=== PATIENT | male | born 1955 | race Caucasian/White ===

== ENCOUNTER 2022-04-23 07:51 | Inpatient (IN) ==
[2022-04-23] MEDS ORDERED: NITROGLYCERIN SL 0.4 MG/TAB TAB SL STA (08:12)
[2022-04-23] MEDS ORDERED: ASPIRIN CHEW 324 MG PO STA (08:12)
[2022-04-23] MEDS ORDERED: METOPROLOL TARTRATE 1 MG/ML VIAL IV STA (08:13)
[2022-04-23] MEDS ORDERED: SODIUM CHLORIDE 0.9% 1000ML 1,000 ML IV ONE (08:16)
--- NOTE | 2022-04-23 08:16 | Emergency Department Note ---
Impression & Plan Non-ST elevation CA (NSTEMI), Chest pain ED Provider Note NAME: RUBENS OCAMPO AGE: 66 SEX: M : 1955 ARRIVES VIA: Walk-In INFORMANT: Patient ED PROVIDER(S): Joaquin Valdez DO CHIEF COMPLAINT: chest pain HPI: Patient is a 66-year-old male with a past medical history of hyperlipidemia, hypertension, carotid sclerosis, CAD who presents to the ER for chest pain which she describes as a tightness in the middle of his chest off and on for the past week. Over the past 3 days it has been constant and it worsens with exertion. It improves with rest. He does have some arm pain. Associated shortness of breath. No belly pain, nausea, vomiting, or diarrhea. No dysuria, urgency, or frequency. No other exacerbating or remitting factors. ROS: See above HPI for pertinent positives & negatives. A total of 10 systems reviewed and were otherwise negative. PAST MEDICAL HISTORY:See Below PAST SURGICAL HISTORY:See Below FAMILY HISTORY:See Below SOCIAL HISTORY:See Below HOME MEDICATIONS:See Below ALLERGIES:See Below VITALS:See Below PHYSICAL EXAMINATION: GENERAL: Sitting up in bed, alert, ill-appearing, moderate distress EYE EXAM: normal conjunctiva. OROPHARYNX: Dry mucous membranes NECK: supple, no nuchal rigidity, no adenopathy, non-tender LUNGS: Clear to auscultation. Normal chest wall mechanics HEART: S1 normal and S2 normal ABDOMEN: abdomen soft, non-tender, normo-active bowel sounds, no masses, no rebound or guarding. UPPER EXTREMITIES: upper extremities are grossly normal. LOWER EXTREMITIES: No pitting edema. NEURO EXAM: Normal sensorium, cranial nerves II-XII grossly intact, normal speech, no gross weakness of arms, no gross weakness of legs. MEDICAL DECISION MAKING: Patient is a 66-year-old male who presents the ER for chest pain which has been present off and on for the past week with exertion and now constant for the past 48 hours. IV was established blood work was obtained. EKG showed ischemic changes and consequently patient was given aspirin nitro and Lopressor with a heart rate in the low 100s. Heart rate trended down and his chest pain was relieved. Labs show no significant leukocytosis or anemia. Following the EKG did consult Dr. Davila but did not hear back as he was cathing someone and I was able to discussed with Dr. Sandoval who was gracious enough to send down a bi technical lead and evaluate the Pt at bedside. Did discuss with Dr. Calvin Tracey for admission. Troponin then resulted and was elevated at 515. Did start heparin as I do feel this most consistent with an NSTEMI. 930 patient was seen and evaluated by Dr. Sandoval and echo was reviewed and will go to Chief Clinical Officer. Following this he became very dyspneic and repeat chest x-ray shows extensive pulmonary edema. Placed on BiPAP. He was given Lasix. Rae was placed. He was given multiple dose of Ativan to help him calm down. He became more tired noted that he was struggling to breathe as he was exhausted. At this point I had a conversation with him and we decided to intubate him. He was taken to be 1 intubated with a 7 and half ET tube. Following chest x-ray was advanced 1 cm. Patient was placed on propofol drip. He was initially intubated using socks and etomidate. Propofol drip was titrated up and he dropped his pressures after bolus of propofol. This was titrated back down. He was then given a small bolus of Versed once the pressures rebounded and he started waking up. He was placed on fentanyl drip. He again dropped his pressures and once again these were titrated back down. Patient was admitted to the ICU and he was taken emergently to Chief Clinical Officer. Triage Nursing notes reviewed. Limited review of prior medical records performed Vital Signs: reviewed and remarkable for HTN and tachy Differential diagnosis: Cardiac ischemia, aortic dissection, pulmonary embolism, pneumothorax, pneumonia, pericarditis, myocarditis, esophageal rupture, GERD, cholecystitis, pancreatitis, musculoskeletal, as well as other pathologies. ER treatment provided: See below Diagnostics interpreted by me: ECG: Sinus tachycardia rate of 105 Normal axis Right bundle branch block T wave inversions in the septal leads as well as ST depressions and T wave inversions in V4 through V6 QTC 539 Cardiac Monitoring: An order was placed for continuous cardiac monitoring. The monitor shows a rate of 101 with sinus rhythm. Laboratory studies: As stated above and show below. Imaging studies: Chest x-ray with a normal mediastinum no infiltrates Repeat chest x-ray shows diffuse pulmonary edema Repeat chest x-ray shows diffuse pulmonary edema with placement of the ET tube Consultation(s): Discussed with Dr. Stefan Sandoval who ordered the echo and evaluate the patient at bedside. Discussed with Dr. Calvin Man for admission Jr Uribe was present evaluate the patient and did admission. He also discussed with the ICU/pilot plant technician Did discuss with Tayla Delgado who eventually took over from the hospital standpoint as she updated the Procedures: EM PROCEDURE NOTE - Endotracheal Intubation PROCEDURE NOTE: Informed consent was obtained by the patient. Verify Correct Patient: yes Procedure: Endotracheal intubation Indication: Respiratory failure pulmonary edema The procedure was done emergently. Description of the Procedure: The patient was seen and properly identified. The patient was pre-oxygenated and intubated after rapid sequence induction with meds: Succinylcholine and etomidate. Intubation was performed using a 3 glide scope and a 7.5 cuffed endotracheal tube. The tube was visualized going through the cords and secured at the lips. The patient had good bilateral breath sounds in the axillae with good chest rise. Proper ET tube placement was confirmed by end tidal CO2 detector. The patient tolerated the procedure well. Critical Care: I have personally spent 125 minutes of critical care time in the direct management of this patient. This includes bedside care, interpretation of diagnostic studies, and testing, discussion with consultants, patient, and family members, and other required patient management activities. This 125 minutes is in excess of all separately billable procedures. Past Med/Surg History Surgical History History of appendectomy [place] teeth extracted Family History Mother Breast cancer Grandmother (Maternal) Breast cancer Denies family history of Ovarian cancer Prostate cancer Diabetes Heart disease Myocardial infarction Lung cancer Colorectal cancer Hypertension Stroke Social History Smoking Status: Current every day smoker Tobacco Type: Cigarettes Hx Alcohol Use: Yes Alcohol type: beer Hx Substance Use: Yes marital status: Single Current Living Situation: Significant Other current occupational status: employed current occupation: Electrical sales Feels Safe at Home: Yes caffeine: Yes (coffee) Dental Care, Regularly: Yes Physical Activity Frequency: Does not Exercise Seatbelt Use: always Sunscreen Use: No Allergies Allergies Allergy/AdvReac Type Severity Reaction Status Date / Time No Known Allergies Allergy Verified 04/23/22 11:09 Home Meds Home Medications Medication Instructions Recorded Confirmed aspirin 81 mg tablet,delayed 81 mg PO DAILY 01/06/19 04/23/22 release (Adult Low Dose Aspirin) apple cider vinegar 500 mg tablet 0 mg PO DAILY 04/23/22 04/23/22 omega-3 fatty acids 1,000 mg 1,000 mg PO DAILY 04/23/22 04/23/22 capsule Results & Data (ED) Vital Signs Vital Signs - 24 hr 04/23/22 08:00 04/23/22 08:20 04/23/22 08:05 Temperature 36.1 C L Temperature Source Skin Pulse Rate 105 H 112 H Pulse Rate [Right Finger] Respiratory Rate 20 Respiratory Effort / Characteristics Non-Labored Spontaneous Non-Labored Spontaneous Respiratory Depth Normal Normal Respiratory Pattern Regular Regular Blood Pressure 159/108 H 137/99 Blood Pressure [Right Arm] Blood Pressure Mean 125 Blood Pressure Mean [Right Arm] Pulse Oximetry 96 Oxygen Delivery Method Room Air Fraction of Inspired Oxygen Sepsis Recent Fever Within 48 Hours No Sepsis New/Unexplained Change in Mental Status N/A Sepsis Action Taken by Nursing No Action Required End-Tidal CO2 04/23/22 08:05 04/23/22 08:05 04/23/22 08:35 Temperature Temperature Source Pulse Rate 112 H Pulse Rate [Right Finger] 91 H Respiratory Rate 20 20 Respiratory Effort / Characteristics Non-Labored Respiratory Depth Normal Respiratory Pattern Blood Pressure Blood Pressure [Right Arm] 116/78 Blood Pressure Mean Blood Pressure Mean [Right Arm] 90 Pulse Oximetry 94 93 Oxygen Delivery Method Room Air Room Air Room Air Fraction of Inspired Oxygen Sepsis Recent Fever Within 48 Hours Sepsis New/Unexplained Change in Mental Status Sepsis Action Taken by Nursing End-Tidal CO2 04/23/22 08:40 04/23/22 08:45 04/23/22 08:50 Temperature Temperature Source Pulse Rate Pulse Rate [Right Finger] 90 89 93 H Respiratory Rate 16 16 16 Respiratory Effort / Characteristics Non-Labored Non-Labored Non-Labored Respiratory Depth Normal Normal Normal Respiratory Pattern Blood Pressure Blood Pressure [Right Arm] 115/83 117/83 110/75 Blood Pressure Mean Blood Pressure Mean [Right Arm] 93 94 86 Pulse Oximetry 94 94 93 Oxygen Delivery Method Room Air Room Air Room Air Fraction of Inspired Oxygen Sepsis Recent Fever Within 48 Hours Sepsis New/Unexplained Change in Mental Status Sepsis Action Taken by Nursing End-Tidal CO2 04/23/22 10:20 04/23/22 10:32 04/23/22 10:35 Temperature Temperature Source Pulse Rate 133 H Pulse Rate [Right Finger] 132 H 132 H Respiratory Rate 36 H 36 H 36 H Respiratory Effort / Characteristics Spontaneous Labored Respiratory Depth Respiratory Pattern Tachypnea Blood Pressure Blood Pressure [Right Arm] 179/116 H 168/112 H Blood Pressure Mean Blood Pressure Mean [Right Arm] 137 130 Pulse Oximetry 93 92 Oxygen Delivery Method BiPAP BiPAP Fraction of Inspired Oxygen 60 60 Sepsis Recent Fever Within 48 Hours Sepsis New/Unexplained Change in Mental Status Sepsis Action Taken by Nursing End-Tidal CO2 04/23/22 10:46 04/23/22 11:16 04/23/22 11:25 Temperature Temperature Source Pulse Rate 123 H Pulse Rate [Right Finger] 136 H Respiratory Rate 36 H 18 22 Respiratory Effort / Characteristics Respiratory Depth Respiratory Pattern Blood Pressure Blood Pressure [Right Arm] 187/111 H Blood Pressure Mean Blood Pressure Mean [Right Arm] 136 Pulse Oximetry 90 Oxygen Delivery Method BiPAP Fraction of Inspired Oxygen 100 Sepsis Recent Fever Within 48 Hours Sepsis New/Unexplained Change in Mental Status Sepsis Action Taken by Nursing End-Tidal CO2 34 Laboratory Data Result diagrams: 04/23/22 08:15 04/23/22 08:15 Lab Results 04/23/22 04/23/22 04/23/22 Range/Units 08:15 08:15 08:15 WBC 9.83 (4.8-10.8) K/ul RBC 4.41 L (4.63-6.08) M/uL Hgb 14.8 (14.0-18.0) g/dl Hct 41.6 (40.1-51.0) % MCV 94.3 (80.0-100.0) fL MCH 33.6 (25.0-34.0) pg MCHC 35.6 (32.0-36.0) g/dL RDW Std Deviation 44.6 (36.4-46.3) fL RDW Coeff of Yenni 12.9 (11.5-14.5) % Plt Count 220 (130-400) K/uL MPV 10.6 (9.4-12.4) fL Immature Gran % (Auto) 0.4 % Neut % (Auto) 64.2 % Lymph % (Auto) 26.3 % Nolan % (Auto) 7.0 % Eos % (Auto) 1.4 % Baso % (Auto) 0.7 % Neut # (Auto) 6.30 (1.4-6.5) K/uL Lymph # (Auto) 2.59 (1.2-3.4) K/uL Nolan # (Auto) 0.69 (0.24-0.82) K/uL Eos # (Auto) 0.14 (0-0.50) K/uL Baso # (Auto) 0.07 (0-0.2) K/uL Immature Gran # (Auto) 0.04 H (0.00-0.02) K/uL PT (9.0-12.0) Seconds INR (0.9-1.1) APTT (21.0-31.0) Seconds PTT Ratio POC pH (7.35-7.45) POC pCO2 (35-46) mmHg POC pO2 (80-95) mmHg POC HCO3 (19-24) addy/L POC Total CO2 (24-31) mmol/L POC Base Excess (-9-1.8) addy/L POC ABG O2 Sat (90-95) % Sodium 138 (136-145) mmol/L Potassium 3.8 (3.5-5.1) mmol/L Chloride 106 (98-107) mmol/L Carbon Dioxide 24 (21-32) mmol/L Anion Gap 8 (3-11) BUN 27 H (6-23) mg/dl Creatinine 1.15 (0.6-1.4) mg/dl Est Cr Clr Drug Dosing 72.3 ml/min Est GFR ( Amer) 75.4 ml/min Est GFR (Non-Af Amer) 65.0 ml/min BUN/Creatinine Ratio 23.5 H (10-20) Glucose 127 H (70-99(Fasting)) mg/dl Calcium 9.2 (8.5-10.1) mg/dl Total Bilirubin 0.8 (0.2-1.0) mg/dl AST 19 (13-39) U/L ALT 28 (7-52) U/L Alkaline Phosphatase 58 (34-104) U/L Troponin I High Sens 515.9 H* (0-20) pg/ml Total Protein 7.6 (6.0-8.3) gm/dl Albumin 4.7 (3.4-5.0) gm/dl Globulin 2.9 (2.5-4.0) gm/dl Albumin/Globulin Ratio 1.6 (0.9-2) Lipase 32 (11-82) U/L SARS-CoV-2, RNA, NAAT NEGATIVE (NEGATIVE) 04/23/22 04/23/22 Range/Units 08:15 11:23 WBC (4.8-10.8) K/ul RBC (4.63-6.08) M/uL Hgb (14.0-18.0) g/dl Hct (40.1-51.0) % MCV (80.0-100.0) fL MCH (25.0-34.0) pg MCHC (32.0-36.0) g/dL RDW Std Deviation (36.4-46.3) fL RDW Coeff of Yenni (11.5-14.5) % Plt Count (130-400) K/uL MPV (9.4-12.4) fL Immature Gran % (Auto) % Neut % (Auto) % Lymph % (Auto) % Nolan % (Auto) % Eos % (Auto) % Baso % (Auto) % Neut # (Auto) (1.4-6.5) K/uL Lymph # (Auto) (1.2-3.4) K/uL Nolan # (Auto) (0.24-0.82) K/uL Eos # (Auto) (0-0.50) K/uL Baso # (Auto) (0-0.2) K/uL Immature Gran # (Auto) (0.00-0.02) K/uL PT 10.9 (9.0-12.0) Seconds INR 1.0 (0.9-1.1) APTT 26.9 (21.0-31.0) Seconds PTT Ratio 1.0 POC pH 7.22 L (7.35-7.45) POC pCO2 63 H (35-46) mmHg POC pO2 71 L (80-95) mmHg POC HCO3 26 H (19-24) addy/L POC Total CO2 28 (24-31) mmol/L POC Base Excess -2.0 (-9-1.8) addy/L POC ABG O2 Sat 90.0 (90-95) % Sodium (136-145) mmol/L Potassium (3.5-5.1) mmol/L Chloride (98-107) mmol/L Carbon Dioxide (21-32) mmol/L Anion Gap (3-11) BUN (6-23) mg/dl Creatinine (0.6-1.4) mg/dl Est Cr Clr Drug Dosing ml/min Est GFR ( Amer) ml/min Est GFR (Non-Af Amer) ml/min BUN/Creatinine Ratio (10-20) Glucose (70-99(Fasting)) mg/dl Calcium (8.5-10.1) mg/dl Total Bilirubin (0.2-1.0) mg/dl AST (13-39) U/L ALT (7-52) U/L Alkaline Phosphatase (34-104) U/L Troponin I High Sens (0-20) pg/ml Total Protein (6.0-8.3) gm/dl Albumin (3.4-5.0) gm/dl Globulin (2.5-4.0) gm/dl Albumin/Globulin Ratio (0.9-2) Lipase (11-82) U/L SARS-CoV-2, RNA, NAAT (NEGATIVE) Administered Medications Heparin Sodium/Dextrose (Heparin Sodium/Dextrose) 25,000 units in 500 mls @ 0.02 mls/hr IV .Q24H MARCELINA; Protocol Stop: 05/23/22 09:44 Last Admin: 04/23/22 09:44 Dose: 1,000 units/hr, 20 mls/hr Documented By: NRB Co-signed By: DENIZ Propofol (Diprivan) 1,000 mg in 100 mls @ 12.204 mls/hr IV .Q8H12M [facility]; Protocol Stop: 04/26/22 11:14 Last Admin: 04/23/22 11:14 Dose: 25 mcg/kg/min, 15.3 mls/hr Documented By: NDW Co-signed By: DM Fentanyl Citrate (Fentanyl Citrate) 2,500 mcg in 250 mls @ 2.5 mls/hr IV .Q96H [facility]; Protocol Stop: 05/07/22 11:29 Last Admin: 04/23/22 11:37 Dose: 25 mcg/hr, 2.5 mls/hr Documented By: HEATH Co-signed By: MARIA ANTONIA Propofol (Propofol Bolus From Bag) 20 mg IV Q5M PRN PRN Reason: Sedation Stop: 04/26/22 11:02 Last Admin: 04/23/22 11:14 Dose: 20 mg Documented By: FELIBERTOW Co-signed By: DM Discontinued Medications Aspirin (Aspirin Chew 324 Mg) 324 mg PO NOW STA Stop: 04/23/22 08:13 Last Admin: 04/23/22 08:23 Dose: 324 mg Documented By: MICHAEL Fentanyl Citrate (Fentanyl Citrate 100 Mcg/2 Ml Vial) 50 mcg IV NOW ONE Stop: 04/23/22 11:46 Last Admin: 04/23/22 11:25 Dose: 50 mcg Documented By: HEATH Furosemide (Furosemide 40 Mg/4 Ml Vial) 40 mg IV ONE ONE Stop: 04/23/22 09:36 Last Admin: 04/23/22 10:05 Dose: 40 mg Documented By: MICHAEL Heparin Sodium (Porcine) (Heparin Sod (Porcine) 1000 Unit/Ml) 1 units IV NOW ONE Stop: 04/23/22 09:34 Last Admin: 04/23/22 09:41 Dose: 4,000 units Documented By: MICHAEL Co-signed By: DENIZ Heparin Sodium/Dextrose (Heparin Iv Adult Wt-Based Low-Dose With Bolus Protocol) 1 each IV NOW STA; Protocol Stop: 04/23/22 11:22 Last Admin: 04/23/22 11:26 Dose: Not Given Documented By: HEATH Sodium Chloride (Nss 1000ml) 1,000 mls @ 999 mls/hr IV .Q1H1M ONE Stop: 04/23/22 09:16 Last Infusion: 04/23/22 09:32 Dose: 0 mls/hr Documented By: Admin: 04/23/22 08:23 Dose: 999 mls/hr Documented By: MICHAEL Lorazepam (Lorazepam 2 Mg/1 Ml Vial) Confirm Administered Dose 2 mg .ROUTE .STK- MED ONE Stop: 04/23/22 10:09 Last Admin: 04/23/22 10:10 Dose: 2 mg Documented By: MICHAEL Lorazepam (Lorazepam 2 Mg/1 Ml Vial) Confirm Administered Dose 2 mg .ROUTE .STK- MED ONE Stop: 04/23/22 10:13 Last Admin: 04/23/22 10:17 Dose: 2 mg Documented By: MICHAEL Metoprolol Tartrate (Metoprolol Tartrate 1 Mg/Ml Vial) 5 mg IV NOW STA Stop: 04/23/22 08:14 Last Admin: 04/23/22 08:20 Dose: 5 mg Documented By: MICHAEL Midazolam HCl (Midazolam Hcl 1 Mg/Ml 2ml Vial) 2 mg IV NOW ONE Stop: 04/23/22 11:46 Last Admin: 04/23/22 11:24 Dose: 2 mg Documented By: HEATH Miscellaneous (Rapid Sequence Induction Bag) Confirm Administered Dose 1 each .ROUTE .STK-MED ONE Stop: 04/23/22 10:49 Last Admin: 04/23/22 11:07 Dose: 1 each Documented By: HEATH Nitroglycerin (Nitroglycerin Sl 0.4 Mg/Tab Tab) 0.4 mg SL NOW STA Stop: 04/23/22 08:13 Last Admin: 04/23/22 08:23 Dose: 0.4 mg Documented By: MICHAEL Nitroglycerin (Nitroglycerin 2% Ointment 30gm Tube) Confirm Administered Dose 18 inch EXT .STK-MED ONE Stop: 04/23/22 10:12 Last Admin: 04/23/22 10:13 Dose: 2 inch Documented By: MICHAEL Nitroglycerin/Dextrose (Nitroglycerin/D5w 100 Mcg/Ml Btl) Confirm Administered Dose 25 mg .ROUTE .STK-MED ONE Stop: 04/23/22 10:17 Last Admin: 04/23/22 10:26 Dose: 10 mcg Documented By: MICHAEL Co-signed By: DM Propofol (Propofol Iv Emulsion 10 Mg/Ml 100 Ml Vial) Confirm Administered Dose 1,000 mg IV .STK-MED ONE Stop: 04/23/22 11:01 Last Admin: 04/23/22 11:08 Dose: 1,000 mg Documented By: HEATH Co-signed By: DM Imaging Data Radiologist's Impression: Chest X-Ray 04/23/22 08:05 XR chest 1V portable CLINICAL HISTORY: Chest pain, nonspecific COMPARISON STUDY: Chest CT August 08, 2010. Chest radiograph July 04, 2009. FINDINGS: Lung volumes are normal. No pneumothorax or pleural effusion is present. Mild left lower lung airspace opacity is present. There is subtle lower lung interstitial thickening. This is probably within normal limits. Mild cardiomegaly is noted. There is no evidence for pulmonary edema. IMPRESSION: Mild left lower lung airspace opacity. This favors an infectious process. Radiographic follow-up to ensure resolution is recommended. ACT 112: Negative or not required by law. Electronically signed by: Rudi Bustos M.D. 04/23/2022 8:44 AM Chest X-Ray 04/23/22 10:05 XR chest 1V portable CLINICAL HISTORY: Shortness of breath. COMPARISON STUDY: Chest radiograph performed earlier today. FINDINGS: Moderate interstitial pulmonary edema has developed. Mild cardiomegaly is noted. There is no pneumothorax. No definite pleural effusion is identified. There may be mild left basilar opacity. IMPRESSION: Interval development of moderate interstitial pulmonary edema. ACT 112: Negative or not required by law. Electronically signed by: Rudi Bustos M.D. 04/23/2022 10:49 AM Chest X-Ray 04/23/22 11:04 XR chest 1V portable HISTORY: 66 years-old Male ett acute respiratory failure COMPARISON: 04/23/2022 at 10:16 AM TECHNIQUE: AP view of the chest FINDINGS: Endotracheal tube overlies the midline, 5.2 cm superior to the quyen. Cardiomegaly with pulmonary vascular congestion and progressively worsened interstitial coarsening. Questions trace pleural effusions. No pneumothorax. The lateral left lung base is excluded from the [id number]. Degenerative changes of the shoulders and spine. IMPRESSION: 1. Status post placement of an endotracheal tube, distal tip terminating 5.2 cm superior to the quyen. 2. Cardiomegaly with pulmonary edema. ACT 112: Negative or not required by law. The above report was generated using voice recognition software. It may contain grammatical, syntax or spelling errors. Electronically signed by: Neymar Hansen M.D. 04/23/2022 11:25 AM Discharge Plan Visit Data Chief Complaint: Shortness of Breath/Dyspnea Stated Complaint: TIGHTNESS IN CHEST, SOB ED Provider: Joaquin Valdez Discharge Problem: Non-ST elevation CA (NSTEMI), Chest pain Forms Stand Alone Forms: Smarp Oy Prescriptions Prescriptions: No Action aspirin [Adult Low Dose Aspirin] 81 mg tablet,delayed release (DR/EC) 81 mg PO DAILY omega-3 fatty acids [Fish Oil Concentrate] 1,000 mg Capsule 1,000 mg PO DAILY apple cider vinegar 500 mg Tablet 0 mg PO DAILY Referrals Referrals: Kika Rubalcava MD [Physician] -
--- NOTE | 2022-04-23 08:45 | XRay Report ---
XR chest 1V portable CLINICAL HISTORY: Chest pain, nonspecific COMPARISON STUDY: Chest CT August 08, 2010. Chest radiograph July 04, 2009. FINDINGS: Lung volumes are normal. No pneumothorax or pleural effusion is present. Mild left lower edelmira ng airspace opacity is present. There is subtle lower lung interstitial thickening. This is probably within normal limits. Mild cardiomegaly is noted. There is no evidence for pulmonary edema. IMPRESSION: Mild left lower lung airspace opacity. This favors an infectious process. Radiographic f ollow-up to ensure resolution is recommended. ACT 112: Negative or not required by law. Electronically signed by: Rudi Bustos M.D. 04/23/2022 8:44 AM
[2022-04-23 08:47] LABS: Basophils # (auto) 0.07 K/uL (0-0.2); Basophils % (auto) 0.7 %; Eosinophils # (auto) 0.14 K/uL (0-0.50); Eosinophils % (auto) 1.4 %; Hematocrit (blood only) 41.6 % (40.1-51.0); Hemoglobin 14.8 g/dl (14.0-18.0); Immature Granulocytes # (auto) 0.04 K/uL (0.00-0.02); Immature Granulocytes % (auto) 0.4 %; Lymphocytes # (auto) 2.59 K/uL (1.2-3.4); Lymphocytes % (auto) 26.3 %; Mean Corpuscular Hemoglobin 33.6 pg (25.0-34.0); Mean Corpuscular Hgb Conc 35.6 g/dL (32.0-36.0); Mean Corpuscular Volume 94.3 fL (80.0-100.0); Mean Platelet Volume 10.6 fL (9.4-12.4); Monocytes # (auto) 0.69 K/uL (0.24-0.82); Neutrophils % (auto) 64.2 %; Platelet Count 220 K/uL (130-400); RDW Coefficient of Variation 12.9 % (11.5-14.5); RDW Standard Deviation 44.6 fL (36.4-46.3); Red Blood Count 4.41 M/uL (4.63-6.08); White Blood Count 9.83 K/ul (4.8-10.8)
[2022-04-23 09:17] LABS: Albumin Globulin Ratio 1.6 (0.9-2); Albumin Level 4.7 gm/dl (3.4-5.0); BUN Creatinine Ratio 23.5 (10-20); Bilirubin,Total 0.8 mg/dl (0.2-1.0); Calcium 9.2 mg/dl (8.5-10.1); Creatinine Clr Calc Pharmacy 72.3 ml/min; Est GFR (African American) 75.4 ml/min; Globulin 2.9 gm/dl (2.5-4.0); Potassium 3.8 mmol/L (3.5-5.1); Total Protein 7.6 gm/dl (6.0-8.3)
[2022-04-23] MEDS ORDERED: Heparin IV Adult Wt-Based Low-Dose WITH Bolus Protocol STA (09:18)
[2022-04-23 09:22] LABS: Troponin I High Sensitivity 515.9 pg/ml (0-20)
[2022-04-23] MEDS ORDERED: HEPARIN SOD (PORCINE) 1000 UNIT/ML IV ONE (09:33)
[2022-04-23] MEDS ORDERED: FUROSEMIDE 40 MG/4 ML VIAL IV ONE (09:35)
--- NOTE | 2022-04-23 09:36 | History & Physical Report ---
Date of Service April 23, 2022 Assessment & Plan (1) ACS (acute coronary syndrome): Plan: 66-year-old male presenting with stuttering symptoms of shortness of breath and chest pain for the past 10 to 14 days presenting with consistent chest discomfort resolved with nitroglycerin in the setting of EKG changes and elevated troponin. With NSTEMI * Presenting with EKG changes in the setting of chest pain/HANSON relieved with nitro. * Concerning for ACS picture. * Echo ordered in ED. * Interventionalist at bedside --> Plan for cath today. * Heparin gtt started in the ED. Received Aspirin dose. * AM Lipid panel ordered. * Will add A1c to AM labs. * Will defer to cardiology for ASCVD Rx recommendations. (2) Respiratory failure with hypoxia: Plan: * 2/2 to flash pulmonary edema. * Patient with acute change in the ED requiring initiation of NIPPV and Lasix dosing. * Patient failed BiPAP despite multiple rounds of Ativan. * Patient intubated in the ED 2/2 respiratory failure with hypoxia. * Spoke with [employer] Recruiter who will manage vent. (3) Flash pulmonary edema: Plan: * 2/2 ACS w/ failure. * Will evaluate Echo results. * Initially treated with NIPPV --> intubation. * Continue Lasix dosing per cardiology after cath evaluation. (4) Elevated troponin: Plan: * See above (5) Chest pain: Plan: * See above History of Present Illness Chief Complaint: Chest Pain, SOB Primary Care Provider: NO PCP Patient is a 66-year-old male with a significant past medical history of tobacco dependence with a 09-hase-oaep smoking history, carotid artery disease, hypertension, hyperlipidemia, and prior history of Hodgkin's who presented to the Emergency Department with a 10-14 day history of stuttering chest pain and shortness of breath. He reports that his main symptoms have been shortness of breath on exertion. He does report that he has had paroxysmal nocturnal dyspnea and is woken up short of breath multiple times over the last few nights. While taking out the trash today, he noticed intense shortness of breath and increasing heaviness across the anterior surface of his chest. This prompted visit to the emergency department. The patient reports no recent cough. No recent upper respiratory infections or sequela of symptoms appreciated. Patient reports complete relief of symptoms after nitroglycerin he received in the emergency department. He reports no prior history of coronary artery disease or similar symptoms of chest pain in the past. Patient reports feeling much better at this time. He currently denies complaints of headaches, dizziness, lightheadedness, chest pain, palpitations, pleuritic pain, hemoptysis, recent long distance travel, history of blood clots, nausea, vomiting, abdominal discomfort, or numbness/weakness to the extremities. Patient reports smoking a pack a day for the last 45 years. He drinks socially on a regular basis. Allergies Allergy/AdvReac Type Severity Reaction Status Date / Time No Known Allergies Allergy Verified 04/23/22 11:09 Home Medications Medication Instructions Recorded Confirmed Type aspirin 81 mg tablet,delayed 81 mg PO DAILY 01/06/19 04/23/22 History release (Adult Low Dose Aspirin) apple cider vinegar 500 mg tablet 0 mg PO DAILY 04/23/22 04/23/22 History omega-3 fatty acids 1,000 mg 1,000 mg PO DAILY 04/23/22 04/23/22 History capsule Past Med/Surg History Medical History Benign essential hypertension Carotid atherosclerosis History of smoking Hodgkins disease Mixed hyperlipidemia Surgical History History of appendectomy [place] teeth extracted Family History Mother Breast cancer Grandmother (Maternal) Breast cancer Denies family history of Ovarian cancer Prostate cancer Diabetes Heart disease Myocardial infarction Lung cancer Colorectal cancer Hypertension Stroke Social History Smoking Status: Current every day smoker Tobacco Type: Cigarettes Hx Alcohol Use: Yes Alcohol type: beer Hx Substance Use: Yes marital status: Single Current Living Situation: Significant Other current occupational status: employed current occupation: Electrical sales Feels Safe at Home: Yes caffeine: Yes (coffee) Dental Care, Regularly: Yes Physical Activity Frequency: Does not Exercise Seatbelt Use: always Sunscreen Use: No Review of Systems Review of Systems: A complete 10 point review of systems was reviewed with the patient with pertinent positives and negatives as per history of present illness. All else were negative. Physical Exam Physical Exam: VITAL SIGNS - Vital signs and nursing notes were reviewed. GENERAL - 66-year-old male appearing his stated age who is in no acute distress. Communicates well with provider and answers questions appropriately. HEAD - NC/AT. EYES - PERRL with EOMI bilaterally. Sclera anicteric. Palpebral conjunctiva pink and moist with no injection noted. EARS - No deformities of external structures noted on gross examination bilaterally. NOSE - Midline and without cyanosis. No epistaxis or purulent drainage noted. MOUTH/OROPHARYNX - Without perioral cyanosis. Buccal mucosa pink and moist. NECK - Neck with FROM. LUNGS - Chest wall symmetric without accessory muscle use, intercostals retractions, or central cyanosis. Normal vesicular breath sounds CTA B/L. No wheezes, rales, or rhonchi appreciated. CARDIAC - RRR with S1/S2. No murmur, rubs, or gallops appreciated. No reproducible tenderness to palpation appreciated over the anterior chest wall. ABDOMEN - Abdominal contour protuberant without pulsations or visible masses. BS normoactive all four quadrants. No tenderness, palpable masses, hepatosplenomegaly, or ascites noted. EXTREMITIES - No clubbing or peripheral cyanosis. No pretibial edema present. +3/5 radial and dorsalis pedis pulses palpated throughout. +5/5 strength noted in UE/LE bilaterally. NEUROLOGIC - Cranial nerves II through XII grossly intact. Sensory intact to light touch throughout. PSYCH - A&Ox3 and cooperates fully with examiner. Pt is very pleasant and interacts well with examiner. Results & Data Results & Data ([facility]) Vital Signs (Past 12 Hours) Vital Signs Temp Pulse Pulse Resp BP BP Pulse Ox 04/23/22 08:50 93 H 16 110/75 93 04/23/22 08:45 89 16 117/83 94 04/23/22 08:40 90 16 115/83 94 04/23/22 08:35 91 H 20 116/78 93 04/23/22 08:05 112 H 20 94 04/23/22 08:05 04/23/22 08:20 112 H 137/99 04/23/22 08:00 36.1 C L 105 H 20 159/108 H 96 O2 Del Method 04/23/22 08:50 Room Air 04/23/22 08:45 Room Air 04/23/22 08:40 Room Air 04/23/22 08:35 Room Air 04/23/22 08:05 Room Air 04/23/22 08:05 Room Air 04/23/22 08:20 04/23/22 08:00 Room Air Laboratory Results 04/23/22 04/23/22 04/23/22 Range/Units 11:23 08:15 08:15 WBC (4.8-10.8) K/ul RBC (4.63-6.08) M/uL Hgb (14.0-18.0) g/dl Hct (40.1-51.0) % MCV (80.0-100.0) fL MCH (25.0-34.0) pg MCHC (32.0-36.0) g/dL RDW Std Deviation (36.4-46.3) fL RDW Coeff of Yenni (11.5-14.5) % Plt Count (130-400) K/uL MPV (9.4-12.4) fL Immature Gran % (Auto) % Neut % (Auto) % Lymph % (Auto) % [place] % (Auto) % Eos % (Auto) % Baso % (Auto) % Neut # (Auto) (1.4-6.5) K/uL Lymph # (Auto) (1.2-3.4) K/uL [place] # (Auto) (0.24-0.82) K/uL Eos # (Auto) (0-0.50) K/uL Baso # (Auto) (0-0.2) K/uL Immature Gran # (Auto) (0.00-0.02) K/uL PT 10.9 (9.0-12.0) Seconds INR 1.0 (0.9-1.1) APTT 26.9 (21.0-31.0) Seconds PTT Ratio 1.0 POC pH 7.22 L (7.35-7.45) POC pCO2 63 H (35-46) mmHg POC pO2 71 L (80-95) mmHg POC HCO3 26 H (19-24) addy/L POC Total CO2 28 (24-31) mmol/L POC Base Excess -2.0 (-9-1.8) addy/L POC ABG O2 Sat 90.0 (90-95) % Sodium (136-145) mmol/L Potassium (3.5-5.1) mmol/L Chloride (98-107) mmol/L Carbon Dioxide (21-32) mmol/L Anion Gap (3-11) BUN (6-23) mg/dl Creatinine (0.6-1.4) mg/dl Est Cr Clr Drug Dosing ml/min Est GFR ( Amer) ml/min Est GFR (Non-Af Amer) ml/min BUN/Creatinine Ratio (10-20) Glucose (70-99(Fasting)) mg/dl Calcium (8.5-10.1) mg/dl Total Bilirubin (0.2-1.0) mg/dl AST (13-39) U/L ALT (7-52) U/L Alkaline Phosphatase (34-104) U/L Troponin I High Sens (0-20) pg/ml Total Protein (6.0-8.3) gm/dl Albumin (3.4-5.0) gm/dl Globulin (2.5-4.0) gm/dl Albumin/Globulin Ratio (0.9-2) Lipase (11-82) U/L SARS-CoV-2, RNA, NAAT NEGATIVE (NEGATIVE) 04/23/22 04/23/22 Range/Units 08:15 08:15 WBC 9.83 (4.8-10.8) K/ul RBC 4.41 L (4.63-6.08) M/uL Hgb 14.8 (14.0-18.0) g/dl Hct 41.6 (40.1-51.0) % MCV 94.3 (80.0-100.0) fL MCH 33.6 (25.0-34.0) pg MCHC 35.6 (32.0-36.0) g/dL RDW Std Deviation 44.6 (36.4-46.3) fL RDW Coeff of Yenni 12.9 (11.5-14.5) % Plt Count 220 (130-400) K/uL MPV 10.6 (9.4-12.4) fL Immature Gran % (Auto) 0.4 % Neut % (Auto) 64.2 % Lymph % (Auto) 26.3 % [place] % (Auto) 7.0 % Eos % (Auto) 1.4 % Baso % (Auto) 0.7 % Neut # (Auto) 6.30 (1.4-6.5) K/uL Lymph # (Auto) 2.59 (1.2-3.4) K/uL [place] # (Auto) 0.69 (0.24-0.82) K/uL Eos # (Auto) 0.14 (0-0.50) K/uL Baso # (Auto) 0.07 (0-0.2) K/uL Immature Gran # (Auto) 0.04 H (0.00-0.02) K/uL PT (9.0-12.0) Seconds INR (0.9-1.1) APTT (21.0-31.0) Seconds PTT Ratio POC pH (7.35-7.45) POC pCO2 (35-46) mmHg POC pO2 (80-95) mmHg POC HCO3 (19-24) addy/L POC Total CO2 (24-31) mmol/L POC Base Excess (-9-1.8) addy/L POC ABG O2 Sat (90-95) % Sodium 138 (136-145) mmol/L Potassium 3.8 (3.5-5.1) mmol/L Chloride 106 (98-107) mmol/L Carbon Dioxide 24 (21-32) mmol/L Anion Gap 8 (3-11) BUN 27 H (6-23) mg/dl Creatinine 1.15 (0.6-1.4) mg/dl Est Cr Clr Drug Dosing 72.3 ml/min Est GFR ( Amer) 75.4 ml/min Est GFR (Non-Af Amer) 65.0 ml/min BUN/Creatinine Ratio 23.5 H (10-20) Glucose 127 H (70-99(Fasting)) mg/dl Calcium 9.2 (8.5-10.1) mg/dl Total Bilirubin 0.8 (0.2-1.0) mg/dl AST 19 (13-39) U/L ALT 28 (7-52) U/L Alkaline Phosphatase 58 (34-104) U/L Troponin I High Sens 515.9 H* (0-20) pg/ml Total Protein 7.6 (6.0-8.3) gm/dl Albumin 4.7 (3.4-5.0) gm/dl Globulin 2.9 (2.5-4.0) gm/dl Albumin/Globulin Ratio 1.6 (0.9-2) Lipase 32 (11-82) U/L SARS-CoV-2, RNA, NAAT (NEGATIVE) ECG Indication: chest pain and SOB/dyspnea Rate (beats per minute): 105 Rhythm: sinus tachycardia Findings: + RBBB and + ST depression (Lateral) Comparison ECG Date: no prior available Code Status & VTE Plan VTE Prophylaxis Plan VTE Prophylaxis will be ordered: Yes Supervising Physician Co-Signing Physician Notes PA Supervision Note: I personally saw and examined the patient. I verified all arriaga points and agree with LFORIDALMA Uribe with the following exceptions and/or additions: S-this patient is a 66-year-old male with a history of HTN, hyperlipidemia not currently on treatment, Hodgkin's lymphoma stage Ia status post radiation and chemotherapy in 2013, and cigarette smoker who has not seen a doctor in almost 10 years, who presents to the ER with stuttering chest pain over the last 10 days or so that worsened with increased activity outside this morning. The chest pain was central. He came to the ER and was found to have an abnormal ECG, elevated troponin at 500, and was given aspirin, nitroglycerin sublingual and then later on a nitroglycerin drip, IV metoprolol, and a 1 L bolus of normal saline. He was then noted to develop significant respiratory distress and was given IV Lasix, started on BiPAP and was given Ativan to help with anxiety of being on BiPAP and with respiratory distress. An echocardiogram did show numerous wall motion abnormalities in LAD distribution on initial look with an EF of approximately 30-35%. By the time I saw him, he was on BiPAP, drowsy but remained restless. He sat himself up into a tripod position while on BiPAP and his pulse ox was 90% on 60% FiO2. He told me that he was still having some central chest pain and obviously was short of breath. He denied abdominal pains or nausea. He had been placed on a heparin drip at this point. He was afebrile, with sinus tachycardia in the 1 teens, and blood pressures were quite elevated up to 196/130. I discussed his care with the ER physician as well as the room service bellhop. Plans are to intubate him for respiratory failure and taken emergently to the cardiac laborer car barn. I discussed his care with his fiance at the bedside. History and ROS reviewed otherwise as above O- Vitals reviewed Gen: In respiratory distress, obese, alert but a bit drowsy status post Ativan, answers questions with short answers, with BiPAP mask in place HEENT: Anicteric sclerae, EOMI CV: Regular rhythm, tachycardic, no mgr nl S1S2 Pulm: Positive bibasilar crackles, tachypnea, no wheezes or rhonchi, breath sounds heard throughout all lung rojas Abd: +BS soft NT ND no masses or hernias Ext: No edema Skin: No rashes, warm/dry Neuro: Full strength throughout : Rae catheter in place with approximately 50 mL of clear yellow urine Labs, Rads, and ECG reviewed A/A-77-ibxd-old male here with NSTEMI and acute systolic CHF with acute respiratory failure with hypoxia requiring intubation and mechanical ventilation. -Admit to ICU-vent management as per ICU -Sedation as per social welfare clerk after intubation -Urgent cardiac catheterization to be performed-Will await results and determination of next steps -Continue heparin drip, nitroglycerin drip, received aspirin 324 Mg p.o. x1. Will likely need high intensity statin but will defer until after cardiac catheterization. -Trend serial troponin until peaks -Eventually after stabilization, will need guideline directed medical therapy for heart failure. IV Lasix given x1 and will reassess after Carpet Yarn Winder Operator evaluation for left-sided filling pressures -Rae catheter in place, monitor I's/O's, daily weights -Checking hemoglobin A1c, lipid panel in the morning -Follow CBC, CMP, magnesium, phosphorus and replace electrolytes as needed in the ICU -Keep n.p.o. for now Discussed his care with his fiance at the bedside. She reports that his daughter would be his next of kin/POA. PG Care Time/CCT Total # of Minutes Spent Total Time Spent with Patient: Total time spent is greater than 50% in coordination of care (as documented) at patient's floor/unit and/or counseling patient: Coding Level of Care Code 00416 Initial Inpt Care Lvl 3 Diagnoses ACS (acute coronary syndrome) I24.9 Respiratory failure with hypoxia J96.91 Flash pulmonary edema J81.0 Elevated troponin R77.8 Chest pain R07.9 Time Spent (min) 65
[2022-04-23] MEDS ORDERED: HEPARIN SODIUM/DEXTROSE 25,000 UNITS/500 ML BAG IV SCH ×2 (09:45→16:00)
[2022-04-23 09:53] LABS: Partial Thromboplastin Time 26.9 Seconds (21.0-31.0); Prothrombin Time 10.9 Seconds (9.0-12.0)
[2022-04-23] MEDS ORDERED: LORazepam 2 MG/1 ML VIAL ONE ×2 (10:08→10:12)
[2022-04-23] MEDS ORDERED: NITROGLYCERIN 2% OINTMENT 30GM TUBE EXT ONE (10:11)
[2022-04-23] MEDS ORDERED: NITROGLYCERIN/D5W 100 MCG/ML BTL ONE (10:16)
[2022-04-23] MEDS ORDERED: [UNRECOGNIZED DRUG - REMARK] IV (10:20)
--- NOTE | 2022-04-23 10:36 | Procedure Note ---
Procedure Note Date of Service April 23, 2022 Note Procedure: Solar Installation Helper Indwelling Peripherally Inserted IV Catheter Placement Attending: Dr. Delgado APC: Jr Uribe PA-C Indication: Need for IV Access, Poor Vascular Access Anesthesia: None Verbal consent was obtained from patient prior to performing the procedure. A time-out was completed verifying correct patient, procedure, site, positioning, and implant(s) or special equipment if applicable. Utilizing bedside ultrasound, vascularity of the LEFT upper extremity was assessed. Vessel size was noted for appropriate catheter selection and skin was marked with gentle pressure. Patients LEFT upper extremity was prepped and draped in the usual sterile fashion utilizing chlorhexidine. Ultrasound guidance was used to aid needle placement. A 22 g Endurance Catheter was introduced into the LEFT Forearm vein under direct ultrasound guidance. Guide wire was easily deployed without resistance. Catheter was threaded over the guide wire without resistance and the entire apparatus was removed intact. Good venous blood return was noted in the catheter. The IV catheter was easily flushed with sterile saline flush. Sterile clave was attached to the end of the catheter and good blood return was again noted. Tourniquet was released. StatLock device and sterile dressing were applied. The patient tolerated the procedure well. Blood Loss: Minimal Complications: None Procedural Ultrasound Guidance: Procedure Date: 04/23/2022 Indication: Poor Vascular Access Attending: Dr. Delgado APC: Jr Uribe PA-C Artery/Veins Identified: YES Access confirmed in Vein with ultrasound: YES Complications: NONE Patient tolerated procedure: WELL Coding CPT Codes Tubes, Drains, and Vasc Access - Tubes, Drains, and Vasc Access: [id number] Venipuncture, Age 1/>Req phys skill, (sep proc), Dx/Tx (not rtn) ([id number]) [facility] [place] Procedure Codes (Charges) Tubes, Drains, and Vasc Access Procedure 1: Tubes, Drains, and Vasc Access: [id number] Venipuncture, Age 1/>Req phys skill, (sep proc), Dx/Tx (not rtn)
--- NOTE | 2022-04-23 10:46 | XCELERA ---
[id number]
[2022-04-23] MEDS ORDERED: RAPID SEQUENCE INDUCTION BAG ONE (10:48)
--- NOTE | 2022-04-23 10:49 | Cardiology Consultation ---
Date of Consultation April 23, 2022 Assessment & Plan (1) Non-ST elevation AK (NSTEMI): 2. Acute systolic heart failure with flash pulmonary edema 3. Cardiomyopathy with regional wall motion abnormalitiesEF 30 to 35% 4. Moderate mitral regurgitation 5. Right bundle branch block High risk ACS presentation with echo suggestive of potential multivessel disease. Recommend urgent cardiac catheterization with possible PCI. At present patient with acute respiratory distress in the setting of acute heart failure. Agree with diuresis, nitrates, BiPAP. Continue heparin infusion. We will plan on cardiac catheterization when respiratory status stable. Further recommendations pending coronary angiography. History of Present Illness History of Present Illness Mr. Briceno is a very pleasant 66-year-old man seen urgently in the ED today due to concern for ACS. No prior cardiac history. ASCVD risk factors include ongoing tobacco use, hypertension not currently on meds. Does have reported carotid atherosclerosis. Has a history of Hodgkin's lymphoma involving his neck in remission. Patient has been having new exertional dyspnea, chest tightness for the last 10 days or so. Symptoms gradually progressive and present with minimal exertion, intermittently with rest over the last few days. Also reports orthopnea. No new lower extreme edema. Denies any real chest pain. On arrival mildly dyspneic, tachycardic to 110s. ECG showed sinus rhythm with right bundle branch block and borderline ST depressions laterally. Initial HS TropI 500. Echocardiogram showed EF 30 to 35% with anterior/anterolateral/infer olateral and apical hypokinesis to akinesis. Also with moderate MR. In the ED after initial IV fluid bolus developed respiratory distress consistent with flash pulmonary edema. Placed on BiPAP, nitroglycerin infusion, Ativan. Social history: Lives in [facility]. Significant other Di. 1 grown daughter. Works in electrical sales. Daily smoker, occasional alcohol. Allergies Allergy/AdvReac Type Severity Reaction Status Date / Time No Known Allergies Allergy Verified 04/23/22 11:09 Home Medications Medication Instructions Recorded Confirmed Type aspirin 81 mg tablet,delayed 81 mg PO DAILY 01/06/19 04/23/22 History release (Adult Low Dose Aspirin) apple cider vinegar 500 mg tablet 0 mg PO DAILY 04/23/22 04/23/22 History omega-3 fatty acids 1,000 mg 1,000 mg PO DAILY 04/23/22 04/23/22 History capsule Patient History Medical History (Updated 04/23/22 @ 15:22 by Luigi Mathew MD, [facility]) Benign essential hypertension CAD (coronary artery disease), [place] coronary artery Carotid atherosclerosis History of smoking Hodgkins disease Mixed hyperlipidemia Surgical History History of appendectomy [place] teeth extracted Family History Mother Breast cancer Grandmother (Maternal) Breast cancer Denies family history of Ovarian cancer Prostate cancer Diabetes Heart disease Myocardial infarction Lung cancer Colorectal cancer Hypertension Stroke Social History Smoking Status: Current every day smoker Tobacco Type: Cigarettes Hx Alcohol Use: Yes Alcohol type: beer Hx Substance Use: Yes marital status: Single Current Living Situation: Significant Other current occupational status: employed current occupation: Electrical sales Feels Safe at Home: Yes caffeine: Yes (coffee) Dental Care, Regularly: Yes Physical Activity Frequency: Does not Exercise Seatbelt Use: always Sunscreen Use: No Review of Systems Review of Systems: All systems reviewed & are unremarkable except as noted in HPI & below Physical Exam Physical Exam: General: Initially comfortable prior to flash pulmonary edema HEENT: Sclerae anicteric Lungs: Decreased breath sounds at bases bilaterally Cardiac: Tachycardic, regular, 2/6 holosystolic at apex. JVP approximately 8 Vascular: 2+ radial bilaterally. Abdomen: Soft, nontender Extremities: Well perfused, no peripheral edema Neuro: Nonfocal Psych: Alert orient x3, normal affect and mood Results & Data ([facility]) Vital Signs (Past 12 Hours) Vital Signs Temp Pulse Pulse Resp BP BP Pulse Ox 04/23/22 10:35 132 H 36 H 168/112 H 92 04/23/22 10:32 132 H 36 H 179/116 H 04/23/22 10:20 133 H 36 H 93 04/23/22 08:50 93 H 16 110/75 93 04/23/22 08:45 89 16 117/83 94 04/23/22 08:40 90 16 115/83 94 04/23/22 08:35 91 H 20 116/78 93 04/23/22 08:05 112 H 20 94 04/23/22 08:05 04/23/22 08:20 112 H 137/99 04/23/22 08:00 97.0 F L 105 H 20 159/108 H 96 O2 Del Method FiO2 04/23/22 10:35 BiPAP 04/23/22 10:32 BiPAP 60 04/23/22 10:20 60 04/23/22 08:50 Room Air 04/23/22 08:45 Room Air 04/23/22 08:40 Room Air 04/23/22 08:35 Room Air 04/23/22 08:05 Room Air 04/23/22 08:05 Room Air 04/23/22 08:20 04/23/22 08:00 Room Air PG Care Time/CCT Total # of Minutes Spent Total Time Spent with Patient: Total time spent is greater than 50% in coordination of care (as documented) at patient's floor/unit and/or counseling patient: Coding Level of Care Code 55279 Initial Inpt Care Lvl 3 Diagnoses Non-ST elevation AK (NSTEMI) I21.4
--- NOTE | 2022-04-23 10:51 | XRay Report ---
XR chest 1V portable CLINICAL HISTORY: Shortness of breath. COMPARISON STUDY: Chest radiograph performed earlier today. FINDINGS: Moderate interstitial pulmonary edema has developed. Mild cardiomegaly is noted. There is n o pneumothorax. No definite pleural effusion is identified. There may be mild left basilar opacity. IMPRESSION: Interval development of moderate interstitial pulmonary edema. ACT 112: Negative or not required by law. Electronically signed by: Rudi Bustos M.D. 04/23/2022 10:49 AM
[2022-04-23] MEDS ORDERED: PROPOFOL IV EMULSION 10 MG/ML 100 ML VIAL IV ONE (11:00)
[2022-04-23] MEDS ORDERED: STAT IV Infusion **Titration per Protocol STA ×3 (11:03→14:50)
[2022-04-23] MEDS: propofoL 1,000 MG/100 ML VIAL IV SCH ×2 (11:14→14:35)
[2022-04-23] MEDS: PROPOFOL BOLUS FROM BAG IV PRN ×2 (11:14→14:40)
[2022-04-23] MEDS ORDERED: Heparin IV Adult Wt-Based Low-Dose WITH Bolus Protocol IV STA ×2 (11:21→13:39)
[2022-04-23] MEDS ORDERED: MIDAZOLAM HCL 1 MG/ML 2ML VIAL ONE (11:25)
[2022-04-23] MEDS ORDERED: fentaNYL BOLUS from BAG IV PRN (11:26)
--- NOTE | 2022-04-23 11:26 | XRay Report ---
XR chest 1V portable HISTORY: 66 years-old Male ett acute respiratory failure COMPARISON: 04/23/2022 at 10:16 AM TECHNIQUE: AP view of the chest FINDINGS: Endotracheal tube overlies the midline, 5.2 cm superior to the quyen. Cardiomegaly with pulmonary va scular congestion and progressively worsened interstitial coarsening. Questions trace pleural effusio ns. No pneumothorax. The lateral left lung base is excluded from the [id number]. Degenerative duffy ges of the shoulders and spine. IMPRESSION: 1. Status post placement of an endotracheal tube, distal tip terminating 5.2 cm superior to the neeraj a. 2. Cardiomegaly with pulmonary edema. ACT 112: Negative or not required by law. The above report was generated using voice recognition software. It may contain grammatical, syntax o r spelling errors. Electronically signed by: Neymar Hansen M.D. 04/23/2022 11:25 AM
[2022-04-23] MEDS ORDERED: ICU Protocol for HYPERglycemia SCH (11:30)
[2022-04-23] MEDS ORDERED: fentaNYL citrate 2,500 MCG/250 ML BAG IV SCH (11:30)
[2022-04-23] MEDS ORDERED: fentaNYL citrate 100 MCG/2 ML VIAL ONE (11:32)
[2022-04-23 11:37] LABS: iSTAT Arterial Blood Gas HCO3 26 meg/L (19-24); iSTAT Arterial Blood Gas pCO2 63 mmHg (35-46); iSTAT Arterial Blood Gas pH 7.22 (7.35-7.45); iSTAT Arterial Blood Gas pO2 71 mmHg (80-95); iSTAT Carbon Dioxide 28 mmol/L (24-31)
[2022-04-23] MEDS ORDERED: fentaNYL citrate 100 MCG/2 ML VIAL IV ONE (11:45)
[2022-04-23] MEDS ORDERED: MIDAZOLAM HCL 1 MG/ML 2ML VIAL IV ONE (11:45)
[2022-04-23] MEDS ORDERED: NOREPINEPHRINE BITARTRATE 1 MG/ML 4 ML VIAL (CATH LAB USE ONLY) IV ONE (11:53)
--- NOTE | 2022-04-23 12:03 | Critical Care Consultation ---
Date of Consultation April 23, 2022 Assessment & Plan (1) Cardiogenic shock: (2) Flash pulmonary edema: (3) ACS (acute coronary syndrome): (4) Respiratory failure with hypoxia: (5) Chest pain: (6) Non-ST elevation VT (NSTEMI): (7) CAD (coronary artery disease), [place] coronary artery: (8) Benign essential hypertension: (9) Hodgkins disease: (10) Current smoker: (11) COPD (chronic obstructive pulmonary disease): Plan Reason Critically Ill: 66-year-old male presented to hospital with complaints of shortness of breath and chest pain. Was found to have EKG changes. Was intubated because of flash pulmonary edema. Cardiac cath showed multivessel disease. Patient being transferred to [place] for CABG. In the ICU awaiting transport Neuro - Sedated with propofol and fentanyl Cardiac - EKG 04/23/2022 8 AM: Sinus tachycardia, right bundle branch block, ST depression in the lateral leads -- NSTEMI with cardiogenic shock Acute coronary syndrome S/p cardiac cath showing multivessel disease Intra-aortic balloon pump placement, try to keep mean arterial pressure 65 and above Continue with Levophed --S/p hypertensive emergency Nitroglycerin has been stopped -- History of dyslipidemia Respiratory - -- VDRF Likely secondary to acute hypoxic respiratory failure flash pulmonary edema Continue with ventilatory support Keep RASS -1 -- COPD Not on any inhalers at home GI - No acute issues RENAL/LYTES - Monitor BUNs/creatinine Avoid nephrotoxic medication - Continue with Rae ENDO - ICU hypoglycemia protocol HEME - Monitor H&H ID - No signs of infection --Prophylaxis VTE: IPC GI: Pantoprazole Lines: Peripheral, Rae, right femoral IABP Diet: N.p.o. Plan: Chest x-ray shows diffuse bilateral opacities likely presenting pulmonary vascular congestion ABG 04/23/2022: 7.41/35/143 on PEEP of 10, 70%, respiratory rate of 28. RASS was decreased to 25, FiO2 was decreased to 50% Strict in and out Monitor urine output. Consider giving another Lasix. Follow-up repeat BMP Plan is for the patient to be transferred to [place] for CABG I have personally spent 62 minutes of critical care time in the direct management of this patient. This is a life/limb threatening event. This includes time spent evaluating patient, direct bedside care, chart review, placing orders, interpretation of diagnostic studies, discussion with consultants, patient, and family members, as well as other required patient management activities. This time is exclusive of all separately billable procedures, and teaching time and separate from and in addition to any other critical care service time. History of Present Illness History of Present Illness 66-year-old male presented to the hospital with complaints of chest pain and shortness of breath for approximately 10 days Past medical history Hodgkin's lymphoma, hypertension, dyslipidemia Patient was requiring BiPAP in the ED but he was still desaturating and was intubated Case was signed out to me by Jr Uribe. He was started on nitro drip and given Lasix. Patient went to the Health Insurance Sales Agent, patient was found to have multivessel disease and no intervention was done. Intra-aortic balloon pump was placed At the time of examination, patient's was at bedside He was on Levophed 0.12, propofol 20, fentanyl 25. Respiratory was 28 tidal volume 450 PEEP of 8 and FiO2 80%. He was saturating 98% at that time. Patient was breathing with the vent. While I was examining the patient he did wake up and started moving all his extremities. He was given bolus of fentanyl which resolved the issue. Please make note history was obtained from previous records and Social history: [id number] smoking history, social drinker Allergies Allergy/AdvReac Type Severity Reaction Status Date / Time No Known Allergies Allergy Verified 04/23/22 11:09 Home Medications Medication Instructions Recorded Confirmed Type aspirin 81 mg tablet,delayed 81 mg PO DAILY 01/06/19 04/23/22 History release (Adult Low Dose Aspirin) apple cider vinegar 500 mg tablet 0 mg PO DAILY 04/23/22 04/23/22 History omega-3 fatty acids 1,000 mg 1,000 mg PO DAILY 04/23/22 04/23/22 History capsule Patient History Medical History Benign essential hypertension Carotid atherosclerosis History of smoking Hodgkins disease Mixed hyperlipidemia Surgical History History of appendectomy [place] teeth extracted Family History Mother Breast cancer Grandmother (Maternal) Breast cancer Denies family history of Ovarian cancer Prostate cancer Diabetes Heart disease Myocardial infarction Lung cancer Colorectal cancer Hypertension Stroke Social History Smoking Status: Current every day smoker Tobacco Type: Cigarettes Hx Alcohol Use: Yes Alcohol type: beer Hx Substance Use: Yes marital status: Single Current Living Situation: Significant Other current occupational status: employed current occupation: Electrical sales Feels Safe at Home: Yes caffeine: Yes (coffee) Dental Care, Regularly: Yes Physical Activity Frequency: Does not Exercise Seatbelt Use: always Sunscreen Use: No Review of Systems Review of Systems: Unobtainable due to mental health condition and Un obtainable due to endotracheal tube Physical Exam Physical Exam: Constitutional: No acute distress HEENT: PERRLA, positive ETT Respiratory system: Decreased air entry bilaterally, no wheeze, no rhonchi, positive crackles bilateral lower lobes CVS: S1-S2 positive, no murmurs or gallops Abdomen: Soft, nontender, nondistended, positive bowel sounds x4 Extremities: +2 pulses bilaterally radialis/ dorsalis pedis, no cyanosis, no edema Neuro: Sedated Psych: Unable to assess G/U: Positive Rae Skin: no rashes, warm and dry Lymphatic: no cervical or axillary lymphadenopathy Results & Data Results & Data ([facility]) Vital Signs (Past 12 Hours) Vital Signs Temp Pulse Pulse Resp BP BP Pulse Ox 04/23/22 11:25 22 04/23/22 11:16 123 H 18 90 04/23/22 10:46 136 H 36 H 187/111 H 04/23/22 10:35 132 H 36 H 168/112 H 92 04/23/22 10:32 132 H 36 H 179/116 H 04/23/22 10:20 133 H 36 H 93 04/23/22 08:50 93 H 16 110/75 93 04/23/22 08:45 89 16 117/83 94 04/23/22 08:40 90 16 115/83 94 04/23/22 08:35 91 H 20 116/78 93 04/23/22 08:05 112 H 20 94 04/23/22 08:05 04/23/22 08:20 112 H 137/99 04/23/22 08:00 36.1 C L 105 H 20 159/108 H 96 O2 Del Method FiO2 04/23/22 11:25 04/23/22 11:16 100 04/23/22 10:46 BiPAP 04/23/22 10:35 BiPAP 04/23/22 10:32 BiPAP 60 04/23/22 10:20 60 04/23/22 08:50 Room Air 04/23/22 08:45 Room Air 04/23/22 08:40 Room Air 04/23/22 08:35 Room Air 04/23/22 08:05 Room Air 04/23/22 08:05 Room Air 04/23/22 08:20 04/23/22 08:00 Room Air Laboratory Results 04/23/22 08:15 04/23/22 08:15 Coding Level of Care Code Critical Care 1st 30-74 mins Diagnoses Cardiogenic shock R57.0 Flash pulmonary edema J81.0 ACS (acute coronary syndrome) I24.9 Respiratory failure with hypoxia J96.91 Chest pain R07.9 Non-ST elevation VT (NSTEMI) I21.4 CAD (coronary artery disease), [place] coronary artery I25.10 Benign essential hypertension I10 Hodgkins disease C81.90 Current smoker F17.200 COPD (chronic obstructive pulmonary disease) J44.9 Time Spent (min) 62
[2022-04-23] MEDS ORDERED: niCARdipine HCL INJ 2.5 MG/ML 10 ML AMP ONE (12:10)
[2022-04-23] MEDS ORDERED: NITROGLYCERIN/D5W 100MCG/ML 20ML SYR ONE (12:10)
[2022-04-23] MEDS ORDERED: PROPOFOL IV EMULSION 10 MG/ML 20 ML VIAL (CATH LAB USE ONLY) IV ONE (12:12)
[2022-04-23] MEDS ORDERED: PROPOFOL IV EMULSION 10 MG/ML 100 ML VIAL (CATH LAB USE ONLY) IV ONE (12:13)
[2022-04-23] MEDS ORDERED: HEPARIN (PORCINE) 1000 UNIT/ML 10 ML (CATH LAB USE ONLY) ONE (12:46)
[2022-04-23] MEDS ORDERED: NOREPINEPHRINE/D5W 4 MG/250 ML IV ONE (14:41)
--- NOTE | 2022-04-23 14:42 | Cardiac Catheterization ---
[facility] Data: Rubber Calender Helper Cardiac Status Clinical evaluation leading to the procedure CAD Presenation: Non STEMI Anginal Classification: CCS IV Heart Failure: NYHA Class: CCS IV Cardiogenic Shock within 24 Hours: Yes Diagnostic Physicians Name: Kj Sandoval MD Closure Device Recommendations: CABG Cardiac Cath Procedure Full Procedure Date April 23, 2022 Pre-Procedure Diagnosis Pre-Procedure Diagnosis: Non STEMI and Cardiomyopathy AUC Score AUC Score: 8 Post-Procedure Diagnosis Post-Procedure Diagnosis: Severe CAD and Normal Intracardiac Pressures Procedure(s) Performed Procedure(s) Performed: Coronary Angiography, Left Heart Cath, Right Heart Cath, IABP and Ultrasound Guided Vascular Access Wiper Blender Kj Sandoval MD Adult Basic Education Manager(s) Showers Estimated Blood Loss Estimated Blood Loss: 15 Medication(s) Medication(s): Fentanyl, Heparin, Lidocaine 1%, Norepinephrine and Versed Summary of Findings Indication: High risk ACS, acute heart failure, severe LV dysfunction Access: 6 Fr right radial artery. 6 Fr right CFV. 8 Fr right REFINERY OPERATOR VISBREAKING under ultrasound guidance Catheters: [place], 6 Fr [place] Findings: LM -normal caliber, 30% distal disease LAD -medium caliber vessel, heavily calcified, 98% proximal stenosis just before takeoff of D1. Mid LAD with diffuse 40% disease. Distal vessel without significant disease but WILFREDO II to WILFREDO-3 flow as wraps around apex. Medium D1 with diffuse 70% proximal to mid disease. Circumflex -medium caliber, calcified, 90% earlymid disease just after takeoff of small OM1. Remainder of circumflex without significant disease. Small OM 2 with 70% ostial stenosis. RCA -dominant, calcified, large caliber, 40 to 50% proximal, mid segment ectatic with 40% late mid stenosis prior to RV branch. Distal vessel calcified with mild diffuse disease. Medium caliber RPDA widely patent. Medium caliber right posterior AV branch 100% occluded. RPLBs partially fills via right to right collaterals. RA 7 RV 44/12 PA 49/31 (38) LVEDP 14 PaSat 52% AoSat 91% [place] CO/CI 4.0/1.85 Received IV diuretics in route to Rubber Calender Helper for acute heart failure. Agitated on arrival requiring sedation with fentanyl/Versed and eventual propofol. With sedation hypotensive requiring initiation of norepinephrine. IABP placement Right common femoral artery accessed under ultrasound guidance with placement of 8 Fr sheath 50 cc IABP placed to descending thoracic aorta Balloon pump placed at 1:1 with augmentation to the 130s. Arterial Closure: TR band Summary: 1. Severe multivessel coronary artery disease -Heavily calcified 98% proximal LAD stenosis. Medium D1 70% diffuse proximal disease Calcified 90% earlymid circumflex Calcified, ectatic RCA with 40% proximal, mid stenosis. 100% occlusion right posterior AV branch with right to right collaterals 2. Acute heart failure 3. Cardiogenic shock 4. Pulmonary hypertension 5. Successful IABP placement Recommendations: Transfer to [facility] for possible CABG. Continue heparin infusion. Did not receive P2 Y12 inhibitors Wean norepinephrine as able Hemodynamics Rest Ao:: 105/65/83 Final Ao: 107/74/88 LV: 111/15 Recommendations Recommendations: CABG Specimens Specimens: None Radiation Exposure (mGy) 1384 Contrast (mls) 50 Anesthesia 9794-5944 Procedural Complication(s) None Disposition [facility] [place] I attest to the content of the Intraoperative Record and any orders documented therein. Any exceptions are noted below. Purpose Global Card Cath Procedure Codes Cardiac Catheterization Procedure 1: Cardiovascular Cath Procedures: 23421 Coronaries & LHC (+/-LV) & RHC Therapeutic Services & Ancillary Procedure 2: Cardiovascular Tx and Anc Procedures: 31247 Ultrasonic Guidance Vascular Access Procedure 1: Cardiovascular Tx and Anc Procedures: 82864 IABP Insertion Moderate Sedation Procedure 1: Sedation/Anesthesia: 88921 Mod Sedation by the same physician;Init15 Min Child Age 5 & Up Procedure 2: Sedation/Anesthesia: 39406 Mod Sedation by the same physician; Ea [id number] Minutes PG Care Time/CCT Total # of Minutes Spent Total Time Spent with Patient: Total time spent is greater than 50% in coordination of care (as documented) at patient's floor/unit and/or counseling patient:
[2022-04-23 14:45] LABS: Base Excess VBG 1.2 mEq/L; HCO3 VBG 28 mmol/L; Oxygen Saturation VBG < 60.0 %; PCO2 VBG 50 mmHg (38-50); PO2 VBG 34 mmHg; pH VBG 7.35 (7.36-7.41)
--- NOTE | 2022-04-23 14:58 | Discharge Summary ---
Date of Service April 23, 2022 Admission HPI Per Admitting Provider Patient is a 66-year-old male with a significant past medical history of tobacco dependence with a [id number] smoking history, carotid artery disease, hypertension, hyperlipidemia, and prior history of Hodgkin's who presented to the Emergency Department with a 10-14 day history of stuttering chest pain and shortness of breath. He reports that his main symptoms have been shortness of breath on exertion. He does report that he has had paroxysmal nocturnal dyspnea and is woken up short of breath multiple times over the last few nights. While taking out the trash today, he noticed intense shortness of breath and increasing heaviness across the anterior surface of his chest. This prompted visit to the emergency department. The patient reports no recent cough. No recent upper respiratory infections or sequela of symptoms appreciated. Patient reports complete relief of symptoms after nitroglycerin he received in the emergency department. He reports no prior history of coronary artery disease or similar symptoms of chest pain in the past. Patient reports feeling much better at this time. He currently denies complaints of headaches, dizziness, lightheadedness, chest pain, palpitations, pleuritic pain, hemoptysis, recent long distance travel, history of blood clots, nausea, vomiting, abdominal discomfort, or numbness/weakness to the extremities. Patient reports smoking a pack a day for the last 45 years. He drinks socially on a regular basis. Principal Diagnosis Severe multivessel CAD, Cardiogenic shock, Acute respiratory failure with h ypoxia,Ventilator dependent respiratory failure Discharge Exam see PE from admitting H&P on same DOS Discharge Data Allergies Allergy/AdvReac Type Severity Reaction Status Date / Time No Known Allergies Allergy Verified 04/23/22 11:09 Consultations 04/23/22 09:15 ED Decision to Admit Stat 04/23/22 11:16 Consult Glass Blowing Instructor Routine Procedures Performed Operation Date: 04/23/22 10:00 Actual Procedures s Cineradiography w/Routine Exam - Kofi Sandoval MD s Ultrasound Vascular Access - Kofi Sandoval MD s Intra-Aortic Balloon Insertion - Kofi Sandoval MD p Cath, Right and Left Heart - Kofi Sandoval MD Ordered Studies 04/23/22 09:57 CL Cath Imgs for PACS use only Stat ECHO Hospital Course (1) ACS (acute coronary syndrome): 66-year-old male presenting with stuttering symptoms of shortness of breath and chest pain for the past 10 to 14 days presenting with consistent chest discomfort resolved with nitroglycerin in the setting of EKG changes and elevated troponin. With NSTEMI, then developed acute respiratory failure with hypoxia requiring BiPAP and then intubation with mechanical ventilation. ABG also c/w acute hypercapnic respiratory failure also. He was given IV lasix in ER and started on nitro gtt, heparin gtt Had urgent cardiac catheterization and found to have severe, multivessel disease. Required aortic balloon pump placement and transferred to ICU and was placed on levophed for pressor support. Was accepted at [facility] by Dr. Mckee of [facility] Surgery for eval for CABG. -will need continued management by Glass Blowing Instructor on vent, with cardiogenic shock -trend serial troponin till peaks -continue antiplatelet, will need lipid panel, HgbA1C, high intensity statin, beta dorothy eventually and ACEi/ARB or Entresto once stabilized -aortic balloon pump in place-management as per Cardiology (2) Cardiogenic shock: as above, EF 30-35% on ECHO here with +WMAs needs CABG continue balloon pump, levophed (3) CAD (coronary artery disease), [place] coronary artery: as above, severe and multivessel (4) Respiratory failure with hypoxia: * 2/2 to flash pulmonary edema,acute systolic CHF. * Patient with acute change in the ED requiring initiation of NIPPV and Lasix dosing, then intubation (5) Flash pulmonary edema: see above (6) Elevated troponin: * See above Plan Dispo-accept[place] [facility] [place] awaiting transport which is delayed a bit due to bad weather Total Time Total Time Spent Total Time Spent (In Minutes): 45 min Discussed care with Cardiology, Dr. Sandoval, on phone x 2 Discharge Plan Discharge Items Patient Disposition: Transfer Acute Care Hospital Reason For Visit: CHEST PAIN Discharge Diagnosis: cardiogenic shock,severe multivessel CAD, NSTEMI Condition on Discharge: Critical Activity: As commented below Lifting: None Exercise/Sports: Rest today Non-emergency contact: Primary Care Provider and Rework Machine Operator Call non-emergency contact if: you have any medication questions and your symptoms worsen Follow-up/Referrals: PCP,NO [Primary Care Provider] - Diet: Nothing by Mouth Addtl Attending Provider Instructions: Transferred to [facility] Pending Studies at Discharge: No Stand-Alone Forms: My [facility] Skilled Items Patient informed of condition?: Yes DNR: No Discharge Level of Care: Other Communicable Disease: No Discharge Prognosis: Stable Lines: Peripheral IV Urinary Catheter: Yes Medications and DC Order Prescriptions: Continued aspirin [Adult Low Dose Aspirin] 81 mg tablet,delayed release (DR/EC) 81 mg PO DAILY Discontinued omega-3 fatty acids [Fish Oil Concentrate] 1,000 mg Capsule 1,000 mg PO DAILY apple cider vinegar 500 mg Tablet 0 mg PO DAILY Discharge Orders: Discharge Order (Routine); Ordered 04/23/22 Ordered By: Tayla Delgado Admission Data Admit Date/Time: 04/23/22 11:16 Attending Provider: Tayla Delgado Admit Provider: Tayla Delgado Primary Care Provider: PCP,NO Other Providers: Seun Denton Muqueet Coding Level of Care Code D/C DAY MANAGEMENT >30 MINS Diagnoses ACS (acute coronary syndrome) I24.9 Cardiogenic shock R57.0 CAD (coronary artery disease), [place] coronary artery I25.10 Respiratory failure with hypoxia J96.91 Flash pulmonary edema J81.0 Elevated troponin R77.8
[2022-04-23] MEDS ORDERED: NOREPINEPHRINE/D5W 4 MG/250 ML PLCT IV SCH (15:00)
--- NOTE | 2022-04-23 15:06 | Communication Note ---
Date of Service: April 23, 2022 Discussed care with daughter, Anabela, on the phone and she is consenting of his transport to [facility]. Phone number is [phone]
[2022-04-23 15:13] LABS: iSTAT Arterial Blood Gas HCO3 24 meg/L (19-24); iSTAT Arterial Blood Gas pCO2 55 mmHg (35-46); iSTAT Arterial Blood Gas pH 7.25 (7.35-7.45); iSTAT Arterial Blood Gas pO2 71 mmHg (80-95); iSTAT Carbon Dioxide 25 mmol/L (24-31); iSTAT Hematocrit 43 % (42-52); iSTAT Hemoglobin 14.6 g/dl (14.0-18.0); iSTAT Potassium 4.3 mmol/L (3.3-5.0); iSTAT Sodium 140 mmol/L (135-144)
[2022-04-23 15:18] LABS: BUN Creatinine Ratio 17.9 (10-20); Calcium 8.7 mg/dl (8.5-10.1); Creatinine Clr Calc Pharmacy 59.4 ml/min; Est GFR (African American) 59.4 ml/min; Est GFR (Non-African American) 51.3 ml/min; Potassium 4.7 mmol/L (3.5-5.1)
[2022-04-23 15:21] LABS: iSTAT Allen Test Pass; iSTAT Art Bld Gas pCO2 Correct 35 mmHg (35-46); iSTAT Art Bld Gas pH Corrected 7.416 (7.35-7.45); iSTAT Arterial Blood Gas HCO3 23 meg/L (19-24); iSTAT Arterial Blood Gas pCO2 36 mmHg (35-46); iSTAT Arterial Blood Gas pH 7.41 (7.35-7.45); iSTAT Arterial Blood Gas pO2 143 mmHg (80-95); iSTAT Arterial Blood Gas pO2 C 141; iSTAT Carbon Dioxide 24 mmol/L (24-31); iSTAT Hematocrit 41 % (42-52); iSTAT Hemoglobin 13.9 g/dl (14.0-18.0); iSTAT Potassium 4.5 mmol/L (3.3-5.0); iSTAT Site R Radial; iSTAT Sodium 138 mmol/L (135-144)
[2022-04-23] MEDS ORDERED: SUCCINYLCHOLINE CHLORIDE 20 MG/ML 10 ML VIAL IV ONE (17:44)
[2022-04-23] MEDS ORDERED: ETOMIDATE 2 MG/ML 20 ML VIAL IV ONE (17:44)
[2022-04-24] MEDS ORDERED: PANTOprazole 40 MG in SYRINGE 0 ML IV SCH (11:00)
[2022-04-24 12:02] LABS: iSTAT Arterial Blood Gas HCO3 26 meg/L (19-24); iSTAT Arterial Blood Gas pCO2 62 mmHg (35-46); iSTAT Arterial Blood Gas pH 7.22 (7.35-7.45); iSTAT Arterial Blood Gas pO2 34 mmHg (80-95); iSTAT Carbon Dioxide 28 mmol/L (24-31); iSTAT Hematocrit 44 % (42-52); iSTAT Potassium 4.2 mmol/L (3.3-5.0); iSTAT Sodium 140 mmol/L (135-144)
--- NOTE | 2022-04-25 06:13 | Electrocardiogram Report ---
Test Reason : Blood Pressure : / mmHG Vent. Rate : 105 BPM Atrial Rate : 105 BPM P-R Int : 148 ms QRS Dur : 158 ms QT Int : 408 ms P-R-T Axes : 043 198 050 degrees QTc Int : 539 ms Sinus tachycardia Possible Left atrial enlargement Right bundle branch block Abnormal ECG No previous ECGs available Confirmed by Akash Davila ([id number]) on 04/25/2022 6:12:39 AM Referred By: REFERRED SELF Confirmed By:Akash Davila
--- NOTE | 2022-04-25 06:28 | Electrocardiogram Report ---
Test Reason : Blood Pressure : / mmHG Vent. Rate : 071 BPM Atrial Rate : 071 BPM P-R Int : 150 ms QRS Dur : 146 ms QT Int : 454 ms P-R-T Axes : 054 256 131 degrees QTc Int : 493 ms Normal sinus rhythm Possible Left atrial enlargement Right bundle branch block Abnormal ECG When compared with ECG of 23-APR-2022 08:10, T wave inversion more evident in Lateral leads QT has shortened Confirmed by Akash Davila ([id number]) on 04/25/2022 6:28:11 AM Referred By: REFERRED SELF Confirmed By:Akash Davila
[2022-04-27 15:09] LABS: iSTAT Arterial Blood Gas HCO3 23 meg/L (19-24); iSTAT Arterial Blood Gas pCO2 43 mmHg (35-46); iSTAT Arterial Blood Gas pH 7.34 (7.35-7.45); iSTAT Arterial Blood Gas pO2 71 mmHg (80-95); iSTAT Carbon Dioxide 24 mmol/L (24-31); iSTAT Hematocrit 42 % (42-52); iSTAT Hemoglobin 14.3 g/dl (14.0-18.0); iSTAT Potassium 4.3 mmol/L (3.3-5.0); iSTAT Sodium 139 mmol/L (135-144)
== END 2022-04-23 17:45 | disposition short-term general hospital (02) | DRG 270 ==
LOC: ED 07:51 → 1E 11:16